=== PATIENT | female | born 1990 | race Caucasian/White ===

== ENCOUNTER 2016-10-17 13:13 | Observation (INO) | payer OTHER, MEDICARE ==
[~2016-10-17 13:13] MED LIST: COLACE 100MG C100 MG PO
[2016-10-17 13:31] LABS: HEMOGLOBIN 13.5 gm/dl (12.3-15.3); RED BLOOD COUNT 4.48 M/UL (4.00-5.10); WHITE BLOOD COUNT 8.5 K/UL (4.5-11.0)
== END 2016-10-18 16:30 | disposition home or self-care (01) ==
LOC: GENOP 13:13 → OB 15:57
PROVIDERS: Obstetrics & Gynecology; ADMIT Obstetrics & Gynecology
DX: O13.5 Gestational [pregnancy-induced] hypertension without significant proteinuria, complicating the puerperium (principal); I16.0 Hypertensive urgency; Z79.899 Other long term (current) drug therapy; Z98.51 Tubal ligation status
CPT/HCPCS: 36415; 81001; 82248; 82565; 83735; 84450; 84460; 84550; 85025; 85379; 85384; 85610; 85730; 93005; 96365; 96366; G0378; J3475; J7120